=== PATIENT | female | born 1940 | race Caucasian/White ===

== ENCOUNTER 2016-06-17 21:54 | Emergency (ER) | payer MEDICARE, OTHER ==
[~2016-06-17 21:54] MED LIST: ANUSOL-HC21 GM PR; ASPIRIN PO; ATARAX PO; BACTRIM DS TABL1 TA2 PO; CALTRATE PLUS T1 TAB PO; CALTRATE-600/VI1 TA2 PO; CENTRUM SILVER PO; CRESTOR PO; DIOVAN PO; DIOVAN80 M1 PO; HYDROCHLOROTHIA25 MG PO; LIPITOR PO; MOTION SICKNESS25 M4 PO; PREDNISONE PO
== END 2016-06-17 23:47 | disposition home or self-care (01) ==
LOC: SED 21:54
DX: L50.0 Allergic urticaria (principal); L29.9 Pruritus, unspecified; Z79.899 Other long term (current) drug therapy
CPT/HCPCS: 36415; 96374; 96375; 99284; J1200; J2930

== ENCOUNTER 2016-09-04 21:04 | Emergency (ER) | payer MEDICARE, OTHER ==
[~2016-09-04] VITALS: Ht 157.5 cm; Wt 54.4 kg
[2016-09-04] MEDS ORDERED: BP MED (21:14)
[2016-09-04] MEDS ORDERED: CHOL MED (21:16)
== END 2016-09-04 22:39 | disposition home or self-care (01) ==
LOC: SED 21:04
DX: L23.9 Allergic contact dermatitis, unspecified cause (principal); I10 Essential (primary) hypertension; Z79.82 Long term (current) use of aspirin; Z79.899 Other long term (current) drug therapy
CPT/HCPCS: 96372; 99283; J2930

== ENCOUNTER → 2016-10-06 | Outpatient (CLI) | payer MEDICARE, OTHER ==
[~2016-10-06] MED LIST changes: +BP MED; +CHOL MED
--- NOTE | ~2016-10-06 | CT116 ---
[facility] A Service of [facility] RADIOLOGY TEXT RESULTS PATIENT: EDGARDO MENSAH LOCATION: [facility] : 36 UNIT #: [id number] AGE: [address]: Gerda Knapp MD SEX: F ORDER DR: [id number] [place] [id number] O MR#: [id number] #: [id number] NAME: EDGARDO MENSAH : 1940 SEX: F STUDY DATE/TIME: 10/06/2016 12:50 UNIT: [facility] ROOM: STUDY DESCRIPTION: CT Soft Tissue Neck Wo Cont Attending Physician: Gerda Knapp M.D. Referring Physician: Gerda Knapp M.D. Ordering Physician: Gerda Knapp M.D. Primary Care Physician: Gerda Knapp M.D. MEDICAL IMAGING REPORT This report is preliminary unless electronic signature is present. EXAM Soft tissue neck CT without contrast. HISTORY Submandibular lymphadenopathy bilaterally. Swelling near left medial clavicle. PROCEDURE Unenhanced axial soft tissue neck CT with multiplanar reformats. This CT exam was performed with one or more of the following radiation dose reduction techniques: Automatic exposure control, adjustment of mA and/or kV according to patient size, and iterative reconstruction. FINDINGS The study is markedly limited by the lack of intravenous contrast. Allowing for that, there is no conspicuous or suspicious lymphadenopathy or other mass. Atherosclerotic vascular calcifications are seen in the region of the carotid bifurcations. There is slight asymmetry of the clavicular heads at the sternoclavicular joint, but no bone erosion or destruction. No fracture is seen. The visualized lung apices are unremarkable. IMPRESSION Limited exam due to lack of intravenous contrast. No convincing acute abnormality. There are spinal degenerative changes but no acute bony abnormality is seen. There is mild asymmetry at the clavicular heads, but no acute bony abnormality. Dictated by... Maxi Allen M.D. [facility] A Service of [facility] RADIOLOGY TEXT RESULTS PATIENT: EDGARDO MENSAH LOCATION: [facility] : 36 UNIT #: [id number] AGE: [address]: Gerda Knapp MD SEX: F ORDER DR: THIS IS AN ELECTRONICALLY VERIFIED REPORT Maxi Allen M.D. at 10/19/2016 2:14 PM TEV/psc TD: 10/06/2016 17:29 JOB #: [id number] MEDICAL IMAGING REPORT Page 1 of 1
== END | disposition home or self-care (01) ==
LOC: SCT 12:22
DX: R07.9 Chest pain, unspecified (principal); R59.1 Generalized enlarged lymph nodes; M47.892 Other spondylosis, cervical region
CPT/HCPCS: 70490